=== PATIENT | female | born 1940 | race Caucasian/White ===

== ENCOUNTER → 2017-02-22 | Outpatient (CLI) | payer OTHER ==
[~2017-02-22] MED LIST: ALEN70TA5 PO; ASPI-650 PO; HYDR-3240 PO; LEVO50TA PO; NIAC750T PO
== END | disposition home or self-care (01) ==
LOC: CFH 15:10
PROVIDERS: ATTEND Family Medicine
DX: Z12.31 Encounter for screening mammogram for malignant neoplasm of breast (principal)
CPT/HCPCS: G0202

== ENCOUNTER → 2017-05-10 | Outpatient (CLI) | payer OTHER | END | disposition home or self-care (01) | LOC: CFH 14:29 | PROVIDERS: ATTEND Family Medicine | DX: Z13.820 Encounter for screening for osteoporosis (principal); M81.0 Age-related osteoporosis without current pathological fracture; M85.88 Other specified disorders of bone density and structure, other site | CPT/HCPCS: 77080 ==

== ENCOUNTER → 2018-02-24 | Outpatient (CLI) | payer OTHER | END | disposition home or self-care (01) | LOC: CFH 15:04 | PROVIDERS: ATTEND Family Medicine | DX: Z12.31 Encounter for screening mammogram for malignant neoplasm of breast (principal) | CPT/HCPCS: 77067 ==

== ENCOUNTER 2019-03-11 12:25 | Emergency (ER) | payer MEDICARE, OTHER ==
[~2019-03-11] VITALS: Ht 165.1 cm; Wt 66.0 kg
[~2019-03-11 12:25] MED LIST changes: -ALEN70TA5 PO; +ALEN70TA6 PO
[2019-03-11 12:42] VITALS: BP 147/92
--- NOTE | 2019-03-11 15:37 | NUR ---
REPORT TO ANGELA JUAREZ
--- NOTE | 2019-03-11 16:17 | NUR ---
Patient/Caregiver given discharge instructions and they have confirmed that they understand the instructions. Patient ambulatory with steady gait.
== END 2019-03-11 16:49 | disposition home or self-care (01) ==
LOC: ED 15:31
DX: S16.1XXA Strain of muscle, fascia and tendon at neck level, initial encounter (principal); S40.011A Contusion of right shoulder, initial encounter; M25.512 Pain in left shoulder; J44.9 Chronic obstructive pulmonary disease, unspecified; E07.9 Disorder of thyroid, unspecified; F17.200 Nicotine dependence, unspecified, uncomplicated; V43.02XA Car driver injured in collision with other type car in nontraffic accident, initial encounter; Y93.89 Activity, other specified; Y92.89 Other specified places as the place of occurrence of the external cause; Y99.8 Other external cause status
CPT/HCPCS: 72125; 99284

== ENCOUNTER → 2019-03-15 | Outpatient (CLI) | payer MEDICARE | END | disposition home or self-care (01) | LOC: CFH 12:05 | PROVIDERS: ATTEND Family Medicine | DX: M54.2 Cervicalgia (principal); M11.231 Other chondrocalcinosis, right wrist; E21.3 Hyperparathyroidism, unspecified; M25.541 Pain in joints of right hand; V89.2XXA Person injured in unspecified motor-vehicle accident, traffic, initial encounter | CPT/HCPCS: 73565 ==

== ENCOUNTER → 2019-03-30 | Outpatient (CLI) | payer MEDICARE | END | disposition home or self-care (01) | LOC: CFH 12:53 | PROVIDERS: ATTEND Family Medicine | DX: I67.82 Cerebral ischemia (principal); G44.319 Acute post-traumatic headache, not intractable; R20.0 Anesthesia of skin; V89.2XXD Person injured in unspecified motor-vehicle accident, traffic, subsequent encounter | CPT/HCPCS: 70450 ==

== ENCOUNTER → 2020-08-28 | Outpatient (CLI) | payer MEDICARE ==
[~2020-08-28] MED LIST changes: -ALEN70TA6 PO; +ALEN70TA66 PO; +CALC1CAP8 PO; +CHOL10003 PO; +MELA10TA PO; +TRAM50TA2 PO; +VITA1TAB3 PO
== END | disposition home or self-care (01) ==
LOC: CFH 08:16
PROVIDERS: ATTEND Family Medicine
DX: M81.0 Age-related osteoporosis without current pathological fracture (principal)
CPT/HCPCS: 77080

== ENCOUNTER → 2020-08-30 | Outpatient (CLI) | payer MEDICARE | END | disposition home or self-care (01) | LOC: STAR 15:05 | PROVIDERS: ATTEND Orthopaedic Surgery | DX: Z01.812 Encounter for preprocedural laboratory examination (principal); Z20.828 Contact with and (suspected) exposure to other viral communicable diseases; M65.332 Trigger finger, left middle finger; M65.341 Trigger finger, right ring finger; G56.03 Carpal tunnel syndrome, bilateral upper limbs; I21.09 ST elevation (STEMI) myocardial infarction involving other coronary artery of anterior wall | CPT/HCPCS: 87635; 93005 ==

== ENCOUNTER 2020-09-04 06:16 | Day surgery (SDC) | payer MEDICARE ==
[~2020-09-04] VITALS: Ht 167.6 cm; Wt 60.3 kg
[2020-09-04 07:36] VITALS: BP 143/85
[2020-09-04] MEDS ORDERED: FENTANYL PF 100 MCG/2ML ONE (07:41)
[2020-09-04] MEDS ORDERED: EPINEPHRINE 1 MG/ML, 1ML ONE (07:54)
[2020-09-04] MEDS ORDERED: BUPIVACAINE/PF 0.5% ONE (07:54)
[2020-09-04] MEDS ORDERED: CHLORHEXIDINE 15 ML UDC MM ONE (08:00)
[2020-09-04] MEDS ORDERED: LACTATED RINGERS 1,000 ML IV SCH (08:00)
[2020-09-04] MEDS ORDERED: MEPERIDINE/PF 25MG/0.5ML IVPush PRN (09:30)
[2020-09-04] MEDS ORDERED: PROMETHAZINE 25 MG/ML, 1ML IV PRN (09:30)
[2020-09-04] MEDS ORDERED: ACETAMINOPHEN 325 MG TABLET PO PRN (09:30)
[2020-09-04] MEDS ORDERED: OXYcodone 5 MG/5 ML ORAL.SOL UDC PO PRN (09:30)
[2020-09-04] MEDS ORDERED: HYDROmorphone 2 MG/ML, 1ML IVPush PRN (09:30)
[2020-09-04] MEDS ORDERED: hydrALAzine 20 MG/ML, 1ML IV PRN (09:30)
[2020-09-04] MEDS ORDERED: LABETALOL 5MG/ML, 20ML IV PRN (09:30)
[2020-09-04] MEDS ORDERED: FENTANYL PF 100 MCG/2ML IV PRN (09:30)
[2020-09-04] MEDS ORDERED: DIAZEPAM 5 MG/ML, 2ML IVPush PRN (09:30)
[2020-09-04] MEDS ORDERED: KETOROLAC 30 MG/1 ML IV PRN (09:30)
[2020-09-04] MEDS ORDERED: ALBUTEROL SULFATE 2.5 MG/3 ML NPPB PRN (09:30)
[2020-09-04] MEDS ORDERED: ROCURONIUM 10MG/ML,5ML ONE (09:54)
[2020-09-04] MEDS ORDERED: CEFAZOLIN 1,000 MG ONE (09:54)
[2020-09-04] MEDS ORDERED: DEXAMETHASONE 4 MG/ML, 1ML ONE (09:54)
[2020-09-04] MEDS ORDERED: NEOSTIGMINE 1 MG/ML, 10ML ONE (09:54)
[2020-09-04] MEDS ORDERED: ONDANSETRON 2MG/ML, 2ML ONE (09:54)
[2020-09-04] MEDS ORDERED: GLYCOPYRROLATE 0.2MG/1ML, 5ML ONE (09:54)
[2020-09-04] MEDS ORDERED: PROPOFOL 10 MG/ML, 20ML ONE (09:54)
[2020-09-04] MEDS ORDERED: SUCCINYLCHOLINE 20 MG/ML, 10ML ONE (09:54)
== END 2020-09-04 12:00 | disposition home or self-care (01) ==
LOC: OUT 06:16
PROVIDERS: ATTEND Orthopaedic Surgery
DX: G56.03 Carpal tunnel syndrome, bilateral upper limbs (principal); M65.341 Trigger finger, right ring finger; M65.332 Trigger finger, left middle finger; E07.9 Disorder of thyroid, unspecified; M81.0 Age-related osteoporosis without current pathological fracture; Z79.890 Hormone replacement therapy; Z79.899 Other long term (current) drug therapy; Z85.828 Personal history of other malignant neoplasm of skin; Z85.118 Personal history of other malignant neoplasm of bronchus and lung; Z82.3 Family history of stroke; Z82.49 Family history of ischemic heart disease and other diseases of the circulatory system
CPT/HCPCS: 26055; 29848; 64721; J0171; J0690; J1100; J2405; J2704; J3010; J7120; J2710; J0330

== ENCOUNTER 2020-09-30 20:23 | Emergency (ER) | payer MEDICARE ==
[~2020-09-30] VITALS: Ht 170.2 cm; Wt 61.0 kg
[~2020-09-30 20:23] MED LIST changes: +CEPH-376 PO
[2020-09-30 20:40] VITALS: BP 142/81
[2020-09-30] MEDS ORDERED: HYDROcodone/APAP 5/325 TABLET PO ONE (23:30)
[2020-09-30 23:40] LABS: BASOPHILS % (AUTO) 1 % (0-1); EOSINOPHILS % (AUTO) 1 % (1-7); LYMPHOCYTES % (AUTO) 20 % (22-44); MEAN CORPUSCULAR HEMOGLOBIN 32.8 pg (27.0-34.8); MEAN CORPUSCULAR HGB CONC 34.2 g/dL (32.4-35.8); MEAN PLATELET VOLUME 7.4 fL (7.4-10.4); MONOCYTES % (AUTO) 12 % (2-9); NEUTROPHILS % (AUTO) 66 % (42-75); PLATELET COUNT 353 x10^3/uL (130-400); RED BLOOD COUNT 4.05 x10^6/uL (3.82-5.3); RED CELL DISTRIBUTION WIDTH 13.3 % (9.6-15.2)
[2020-09-30 23:43] LABS: HCT (SEDRATE) 38.8 % (34.6-47.8); MD NO
[2020-09-30 23:49] LABS: ALBUMIN 3.2 g/dL (3.4-5.0); ANION GAP 2 mmol/L (5-15); CALCIUM 9.9 mg/dL (8.5-10.1); CHLORIDE 109 mmol/L (98-107); CREATININE 0.84 mg/dL (0.55-1.02)
[2020-09-30] MEDS ORDERED: HYDROcodone/APAP 5/325 TABLET ONE (23:53)
--- NOTE | 2020-10-01 00:23 | NUR ---
PT RESTING ON [facility] AT BEDSIDE. BLANKETS PROVIDED TO ELEVATE RIGHT WRIST.
[2020-10-01] MEDS ORDERED: SULFAMETH./TRIMETHOPRIM DS 800MG/160MG TABLET PO ONE (01:00)
[2020-10-01] MEDS ORDERED: SULFAMETH./TRIMETHOPRIM DS 800MG/160MG TABLET ONE (01:14)
== END 2020-10-01 01:29 | disposition home or self-care (01) ==
LOC: ED 23:40
DX: L03.113 Cellulitis of right upper limb (principal); F17.210 Nicotine dependence, cigarettes, uncomplicated; J44.9 Chronic obstructive pulmonary disease, unspecified; Z85.118 Personal history of other malignant neoplasm of bronchus and lung; Z96.652 Presence of left artificial knee joint; Z86.39 Personal history of other endocrine, nutritional and metabolic disease
CPT/HCPCS: 36415; 80048; 82040; 83605; 85025; 85651; 86140; 99284

== ENCOUNTER 2020-10-07 20:25 | Emergency (ER) | payer MEDICARE ==
[~2020-10-07] VITALS: Ht 167.6 cm; Wt 58.7 kg
[2020-10-07 20:27] VITALS: BP 156/78
[2020-10-07] MEDS ORDERED: PROPARACAINE OPHTH 0.5%, 15ML ONE (21:05)
[2020-10-07] MEDS ORDERED: FLUORESCEIN OPHTHALMIC 1 MG STRIP EACHEYE ONE (21:30)
[2020-10-07] MEDS ORDERED: PROPARACAINE OPHTH 0.5%, 15ML EACHEYE ONE (21:30)
== END 2020-10-07 21:36 | disposition home or self-care (01) ==
LOC: ED 21:31
DX: H11.32 Conjunctival hemorrhage, left eye (principal); J44.9 Chronic obstructive pulmonary disease, unspecified; Z87.891 Personal history of nicotine dependence; Z85.118 Personal history of other malignant neoplasm of bronchus and lung; Z96.652 Presence of left artificial knee joint
CPT/HCPCS: 99283

== ENCOUNTER → 2020-10-19 | Outpatient (CLI) | payer MEDICARE ==
[~2020-10-19] MED LIST changes: -ALEN70TA66 PO; +ALEN70TA77 PO
[2020-10-19 12:11] LABS: BASOPHILS % (AUTO) 4 % (0-1); EOSINOPHILS % (AUTO) 2 % (1-7); LYMPHOCYTES % (AUTO) 34 % (22-44); MEAN CORPUSCULAR HEMOGLOBIN 32.6 pg (27.0-34.8); MEAN CORPUSCULAR HGB CONC 33.5 g/dL (32.4-35.8); MEAN PLATELET VOLUME 7.8 fL (7.4-10.4); MONOCYTES % (AUTO) 14 % (2-9); NEUTROPHILS % (AUTO) 47 % (42-75); PLATELET COUNT 267 x10^3/uL (130-400); RED BLOOD COUNT 4.31 x10^6/uL (3.82-5.3); RED CELL DISTRIBUTION WIDTH 13.6 % (9.6-15.2)
[2020-10-19 12:19] LABS: ALBUMIN 3.6 g/dL (3.4-5.0); CALCIUM 10.5 mg/dL (8.5-10.1)
[2020-10-19 12:23] LABS: ALANINE AMINOTRANSFERASE 18 U/L (12-78); ALKALINE PHOSPHATASE 87 U/L (45-117); BILIRUBIN,TOTAL 0.4 mg/dL (0.2-1.0); C-REACTIVE PROTEIN, QUANT 0.05 mg/dL (0.02-0.49); CREATININE 1.18 mg/dL (0.55-1.02); TOTAL PROTEIN 6.8 g/dL (6.4-8.2)
[2020-10-19 12:32] LABS: ANION GAP 3 mmol/L (5-15); CHLORIDE 112 mmol/L (98-107); MD SCAN
== END | disposition home or self-care (01) ==
LOC: LAB 11:32
PROVIDERS: ATTEND Internal Medicine Infectious Disease
DX: T81.49XA Infection following a procedure, other surgical site, initial encounter (principal); M65.841 Other synovitis and tenosynovitis, right hand; R79.82 Elevated C-reactive protein (CRP); R70.0 Elevated erythrocyte sedimentation rate
CPT/HCPCS: 36415; 80053; 85025; 85651; 86140

== ENCOUNTER 2021-05-23 02:06 | Emergency (ER) | payer MEDICARE, OTHER ==
[~2021-05-23] VITALS: Ht 160 cm; Wt 56.8 kg
[~2021-05-23 02:06] MED LIST changes: -ASPI-650 PO; +ASPI325T20 PO; +HYDR-2214 PO; -HYDR-3240 PO
[2021-05-23] MEDS ORDERED: DIPH,PERTUSS(ACELL),TET VAC/PF 0.5 ML IM-VACC ONE (02:25)
[2021-05-23] MEDS ORDERED: DIPHTHERIA-TETANUS ADULT 0.5ML IM-VACC ONE (02:30)
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
[2021-05-23 04:08] VITALS: BP 139/79
--- NOTE | 2021-05-23 04:48 | NUR ---
patient ambulated to bathroom without assistance.
== END 2021-05-23 05:06 | disposition home or self-care (01) ==
LOC: ED 05:00
DX: S50.312A Abrasion of left elbow, initial encounter (principal); M25.552 Pain in left hip; M25.562 Pain in left knee; J44.9 Chronic obstructive pulmonary disease, unspecified; F17.200 Nicotine dependence, unspecified, uncomplicated; Z96.652 Presence of left artificial knee joint; Z86.39 Personal history of other endocrine, nutritional and metabolic disease; Z85.118 Personal history of other malignant neoplasm of bronchus and lung; W18.30XA Fall on same level, unspecified, initial encounter; Y93.89 Activity, other specified; Y92.69 Other specified industrial and construction area as the place of occurrence of the external cause; Y99.0 Civilian activity done for income or pay
CPT/HCPCS: 70450; 90471; 90714; 99284